=== PATIENT | male | born 1950 | race Caucasian/White ===

== ENCOUNTER → 2019-07-28 | Outpatient (CLI) | payer OTHER, MEDICARE ==
[~2019-07-28] MED LIST: ASPIRIN EC325 MG PO; CARVEDILOL12.5 MG PO; GLIPIZIDE ER10 MG PO; METFORMIN HCL500 M3 PO; NEURONTIN100 MG PO; NORCO 5-325 TA1 EAC1 PO; PLAVIX 75 MG TA75 MG PO; TRESIBA100 UNIT/1 SUBQ; TRULICITY0.75 MG/0. SUBQ; ZETIA10 MG PO; ZOCOR40 MG PO
== END ==
LOC: M.PC 14:30
DX: M51.16 Intervertebral disc disorders with radiculopathy, lumbar region (principal); M48.061 Spinal stenosis, lumbar region without neurogenic claudication; M53.3 Sacrococcygeal disorders, not elsewhere classified; Z79.899 Other long term (current) drug therapy

== ENCOUNTER → 2019-10-25 | Outpatient (CLI) | payer OTHER, MEDICARE ==
[~2019-10-25] MED LIST changes: +NORCO 5-325 TA1 EAC2 PO
== END ==
LOC: M.PC 07:30
PROVIDERS: ATTEND Physical Medicine & Rehabilitation
DX: M47.26 Other spondylosis with radiculopathy, lumbar region (principal); M51.16 Intervertebral disc disorders with radiculopathy, lumbar region; M48.061 Spinal stenosis, lumbar region without neurogenic claudication

== ENCOUNTER → 2020-02-16 | Outpatient (CLI) | payer OTHER, MEDICARE ==
[~2020-02-16] MED LIST changes: +HYDROCODON-ACE1 EAC7 PO
== END ==
LOC: M.PC 09:50
PROVIDERS: ATTEND Physical Medicine & Rehabilitation
DX: M54.5 Low back pain (principal); Z79.82 Long term (current) use of aspirin; Z79.899 Other long term (current) drug therapy